=== PATIENT | male | born 1960 | race Caucasian/White ===

== ENCOUNTER 2018-01-19 23:36 | Emergency (ER) | payer BC ==
[2018-01-19 23:41] VITALS: BP 123/77; PULSE 98; TEMP 100.4; BMI 28.3
--- NOTE | 2018-01-20 01:14 | PDOC ---
History of Present Illness - General Chief Complaint: Cold Symptoms Stated Complaint: HEADACHE/BODYACHE Time Seen by Provider: 01/20/18 00:58 History Source: Patient Exam Limitations: No Limitations - History of Present Illness Travel History: No Initial Comments: 01/20/18 01:49 Best Contact: PCP:Dr. Mckeon Pmhx:None Pshx:MLD x2 Allergies: NKDA FH:0 Social Hx: Cigarettes/ 0 Alcohol/ 0 Drugs/0 LMP:N/A 57-year-old male presents to the ER with his complaining of right lower quadrant greater than left lower quadrant abdominal pain since approximately 0900 hrs. this morning and had one bout of diarrhea(non bilious/non bloddy) while in the ER. Pain is described as 8/10 sharp nonradiating intermittent discomfort. The pain is exacerbated on touch and there are no alleviating factors. Patient states he's had a subjective fever since this morning with a bandlike bitemporal 4/10 dull nonradiating intermittent headache subsided after taken Tylenol. Patient denies dizziness, lightheadedness, facial pains, neck stiffness/pain, back pain, chest pain, flank pain, extremity numbness or tingling sensation. Past History - Past Medical History Allergies/Adverse Reactions: Allergies Allergy/AdvReac Type Severity Reaction Status Date / Time No Known Allergies Allergy Verified 01/19/18 23:41 - Suicide/Smoking/Psychosocial Hx Smoking History: Never smoked Have you smoked in the past 12 months: No Information on smoking cessation initiated: No Hx Alcohol Use: No Drug/Substance Use Hx: No Review of Systems - Review of Systems Able to Perform ROS?: Yes Comments:: 01/20/18 01:50 CONSTITUTIONAL: + fever, chills Absent:diaphoresis, generalized weakness, malaise, loss of appetite HEENT: Absent: rhinorrhea, nasal congestion, throat pain, throat swelling, difficulty swallowing, mouth swelling, ear pain, eye pain, visual Changes CARDIOVASCULAR: Absent: chest pain, loss of consciousness, palpitations, irregular heart rate, peripheral edema RESPIRATORY: Absent: cough, shortness of breath, dyspnea with exertion, orthopnea, wheezing, stridor, hemoptysis GASTROINTESTINAL: RLQ>LLQ pain Absent: abdominal distension, nausea, vomiting, diarrhea, constipation, melena, hematochezia GENITOURINARY: Absent: dysuria, frequency, urgency, hesitancy, hematuria, flank pain, genital pain MUSCULOSKELETAL: Absent: myalgia, arthralgia, joint swelling SKIN: Absent: rash, itching, pallor Is the patient limited Green[place]ic proficient: No *Physical Exam - Vital Signs Last Vital Signs Temp Pulse Resp BP Pulse Ox 100.4 F H 98 H 16 123/77 100 01/19/18 23:39 01/19/18 23:39 01/19/18 23:39 01/19/18 23:39 01/19/18 23:39 - Physical Exam Comments: 01/20/18 01:51 GENERAL: Well developed, well nourished. Awake and alert. No acute distress. HEENT: Normocephalic, atraumatic. PERRLA, EOMI. No conjunctival pallor. Sclera are non- icteric. Moist mucous membranes. Oropharynx is clear. NECK: Supple. Full ROM. No JVD. Carotid pulses 2+ and symmetric, without bruits. No thyromegaly. No lymphadenopathy. CARDIOVASCULAR: Regular rate and rhythm. No murmurs, rubs, or gallops. Distal pulses are 2+ and symmetric. PULMONARY: No evidence of respiratory distress. Lungs clear to auscultation bilaterally. No wheezing, rales or rhonchi. ABDOMINAL: +RLQ>LLQ pain on palp Soft. Non-distended. No rebound or guarding. No organomegaly. Normoactive bowel sounds. MUSCULOSKELETAL Normal range of motion at all joints. No bony deformities or tenderness. No CVA tenderness. EXTREMITIES: No cyanosis. No clubbing. No edema. No calf tenderness. SKIN: Warm and dry. Normal capillary refill. No rashes. No jaundice. NEUROLOGICAL: Alert, awake, appropriate. Cranial nerves 2-12 intact. No deficits to light touch and temperature in face, upper extremities and lower extremities. No motor deficits in the in face, upper extremities and lower extremities. Normoreflexic in the upper and lower extremities. Normal speech. Toes are down- going bilaterally. Gait is normal without ataxia. PSYCHIATRIC: Cooperative. Good eye contact. Appropriate mood and affect. ED Treatment Course - LABORATORY CBC & Chemistry Diagram: 01/20/18 00:10 01/20/18 00:10 - RADIOLOGY Radiograph Interpretation: 01/20/18 01:51 CT abd/pelvis po/iv contrast: 01/20/18 03:51 Impression: Right-sided colitis may be due to infection, inflammatory bowel disease bowel ischemia. More extensive colitis is difficult to exclude since there is diffuse abdominal collapse but there is apparent mild sigmoid diverticulitis. Unclear if this represents the same process or any second primary process. Possible cystitis can be correlated with urinalysis. Mild prostate enlargement. *DC/Admit/Observation/Transfer Diagnosis at time of Disposition: Colitis Diverticulitis large intestine Qualifiers: Diverticulitis bleeding: without bleeding Diverticulitis complication: without perforation or abscess Qualified Code(s): K57.32 - Diverticulitis of large intestine without perforation or abscess without bleeding - Discharge Dispostion Condition at time of disposition: Stable Decision to Admit order: No - Referrals Referrals: Blanche Brown MD [Primary Care Provider] - Omero Poole MD [Staff Physician] - - Patient Instructions Printed Discharge Instructions: Inflammatory Bowel Disease Additional Instructions: Follow up with Dr. Poole [phone]/Gastoenterologist Increase fluids Return to the ER for severe/persistent/worsening symptoms Antibiotics until completion - Post Discharge Activity
[2018-01-20] MEDS ORDERED: SODIUM CHLORIDE 1,000 ML IV STA (01:15)
[2018-01-20 01:31] LABS: BASO % 0.1 % (0-2.0); EOS % 0.1 % (0-4.5); HEMATOCRIT 39.4 % (35.4-49); HEMOGLOBIN 13.4 GM/dL (11.7-16.9); MCH 29.8 pg (25.7-33.7); MCHC 34.1 g/dl (32.0-35.9); MEAN CELL VOLUME 87.5 fl (80-96); MEAN PLT VOLUME 7.2 fl (7.5-11.1); MONO % 5.8 % (3.8-10.2); PLATELET COUNT 216 K/MM3 (134-434); RBC 4.51 M/mm3 (4.00-5.60); RDW 12.7 % (11.9-15.9); WHITE BLOOD COUNT 6.5 K/mm3 (4.0-10.0)
[2018-01-20 02:17] LABS: ALBUMIN 3.4 g/dl (3.4-5.0); ANION GAP 6 (8-16); BILIRUBIN,TOTAL 0.5 mg/dL (0.2-1.0); BLOOD UREA NITROGEN 11 mg/dL (7-18); CALCIUM 8.2 mg/dL (8.5-10.1); CHLORIDE 106 mmol/L (98-107); CO2 29 mmol/L (21-32); GLUCOSE,RANDOM 120 mg/dL (74-106); POTASSIUM 3.6 mmol/L (3.5-5.1); SGOT/AST 36 U/L (15-37); SGPT/ALT 29 U/L (12-78); SODIUM 141 mmol/L (136-145); TOT PROT 6.8 g/dl (6.4-8.2)
[2018-01-20 02:18] LABS: ALK PHOS 89 U/L (45-117)
[2018-01-20 02:27] LABS: URINE APPEARANCE CLEAR; URINE BILIRUBIN NEGATIVE (<2.0 mg/dL); URINE COLOR STRAW; URINE GLUCOSE (UA) NEGATIVE (NEGATIVE); URINE KETONE NEGATIVE (NEGATIVE); URINE LEUK ESTERASE NEGATIVE (NEGATIVE); URINE NITRITE NEGATIVE (NEGATIVE); URINE PROTEIN NEGATIVE (NEGATIVE); URINE UROBILINOGEN NEGATIVE mg/dL (0.2-1.0)
[2018-01-20] MEDS ORDERED: IBUPROFEN 600 MG TABLET (FP) PO ONE ×2 (04:22→04:25)
[2018-01-20] MEDS ORDERED: HEMOQUE TEST 1 EACH EACH ONE (04:25)
== END 2018-01-20 07:01 | disposition home or self-care (01) ==
LOC: JER 23:36
PROC: 3E03329 Introduction of Other Anti-infective into Peripheral Vein, Percutaneous Approach (ICD-10-PCS; principal; 2018-01-19)
PROC: 3E03329 Introduction of Other Anti-infective into Peripheral Vein, Percutaneous Approach (ICD-10-PCS; 2018-01-19)
PROC: 3E0337Z Introduction of Electrolytic and Water Balance Substance into Peripheral Vein, Percutaneous Approach (ICD-10-PCS; 2018-01-19)
DX: K52.9 Noninfective gastroenteritis and colitis, unspecified (principal); K57.20 Diverticulitis of large intestine with perforation and abscess without bleeding
CPT/HCPCS: 36415; 74177-TC; 80053; 81003; 85025; 99281-25; J7030

== ENCOUNTER 2023-09-14 04:17 | Day surgery (SDC) | payer BC ==
[2023-09-11 12:21] VITALS: BMI 28.8
[2023-09-14 08:26] VITALS: TEMP 97.1
[2023-09-14 08:55] VITALS: BP 116/81; PULSE 65; RESP 14
== END 2023-09-14 09:13 | disposition home or self-care (01) ==
LOC: JASU-ENDO 04:17
PROVIDERS: ATTEND Internal Medicine Gastroenterology
PROC: 0DBL8ZX Excision of Transverse Colon, Via Natural or Artificial Opening Endoscopic, Diagnostic (ICD-10-PCS; 2023-09-14)
PROC: 0DBK8ZX Excision of Ascending Colon, Via Natural or Artificial Opening Endoscopic, Diagnostic (ICD-10-PCS; principal; 2023-09-14 08:00)
DX: Z12.11 Encounter for screening for malignant neoplasm of colon (principal); D12.2 Benign neoplasm of ascending colon; D12.3 Benign neoplasm of transverse colon; K64.8 Other hemorrhoids; K57.30 Diverticulosis of large intestine without perforation or abscess without bleeding; Z86.010 Personal history of colon polyps; E11.9 Type 2 diabetes mellitus without complications; Z79.84 Long term (current) use of oral hypoglycemic drugs
CPT/HCPCS: 82962; 88305-TC